=== PATIENT | female | born 1985 | race Caucasian/White ===

== ENCOUNTER 2020-06-17 04:07 | Emergency (ER) | payer SELFPAY ==
[2020-06-17] MEDS ORDERED: IBUPROFEN 800 MG (MOTRIN) TAB PO ONE ×2 (04:31→04:45)
[2020-06-17] MEDS ORDERED: IBUP-1780 PO (04:32)
--- NOTE | 2020-06-17 04:32 | ED Lower Extremity ---
General Chief Complaint: Lower Extremity Stated Complaint: RIGHT LARGE TOE INJURY Nursing Triage Note: Pt complaining of right big toe pain Nursing Sepsis Screen: No Definite Risk Source: patient Exam Limitations: no limitations History of Present Illness Date Seen by Provider: Jun 17, 2020 Time Seen by Provider: 04:20 Initial Comments 34 y/o female woke up to go to work this morning and when she tried to walk she had pain in her right great toe. Denies injury or previous occurrence of similar pain. No other joint pain. She called in to work as it was too painful to stand all day. Has taken nothing for pain. No pain at rest, only w standing or walking Allergies and Home Medications Allergies Coded Allergies: No Known Drug Allergies (Unverified , 06/17/20) Home Medications Ibuprofen 800 Mg Tablet, 800 MG PO Q8H PRN for PAIN Prescribed by: ISABEL MITCHELL on 06/17/20 0432 Patient Home Medication List Home Medication List Reviewed: Yes Review of Systems Constitutional: no symptoms reported; No chills, No fever, No malaise Respiratory: no symptoms reported Cardiovascular: no symptoms reported Gastrointestinal: no symptoms reported Musculoskeletal: see HPI; No back pain, No gout; joint pain (R great toe) Skin: change in color (redness); No lesions, No lumps, No rash Psychiatric/Neurological: Denies Numbness, Denies Paresthesia Past Fxlflpt-Fvxnzz-Fypadt Hx Past Med/Social Hx: Reviewed Nursing Past Med/Soc Hx Patient Social History Alcohol Use: Denies Use Type Used: Cigarettes 2nd Hand Smoke Exposure: No Recent Infectious Disease Expo: No Recent Hopitalizations: No Past Medical History Surgeries: No Respiratory: No Cardiac: No Neurological: No Genitourinary: No Gastrointestinal: No Musculoskeletal: No Endocrine: No HEENT: No Cancer: No Psychosocial: No Integumentary: No Physical Exam Vital Signs Vital Signs - First Documented 06/17/20 04:17 Temp 37.1 Pulse 63 Resp 18 B/P (MAP) 126/74 (91) Pulse Ox 96 O2 Delivery Room Air Capillary Refill : Less Than 3 Seconds Height, Weight, BMI Height: '" Weight: lbs. oz. kg; BMI Method: General Appearance: WD/WN, no apparent distress Legs: bilateral leg non-tender, bilateral leg normal inspection, bilateral leg normal range of motion, bilateral leg no evidence of injury Knees: bilateral knee non-tender, bilateral knee normal inspection, bilateral knee normal range of motion, bilateral knee no evidence of injury Ankles: bilateral ankle non-tender, bilateral ankle normal inspection, bilateral ankle normal range of motion, bilateral ankle no evidence of injury Feet: left foot non-tender, left foot normal inspection; bilateral foot normal range of motion, bilateral foot no evidence of injury; right foot bone tenderness (R MCP joint w minimal erythema and edema, but mod TTP), right foot pain, right foot soft tissue tenderness, right foot swelling Neurologic/Tendon: normal sensation, normal motor functions, normal tendon functions Neurologic/Psychiatric: alert, normal mood/affect Progress/Results/Core Measures Results/Orders My Orders Orders - ISABEL MITCHELL DO Ibuprofen Tablet (Motrin Tablet) (06/17/20 04:45) Vital Signs/I&O 06/17/20 04:17 Temp 37.1 Pulse 63 Resp 18 B/P (MAP) 126/74 (91) Pulse Ox 96 O2 Delivery Room Air Blood Pressure Mean: 91 Progress Progress Note : Progress Note doubtful that it is a gouty arthropathy as she has no pain at rest. More likely another type of random arthritic flare up. Treatment w NSAIDS and advised f/u at [facility] next week if not improving. Work excuse written for today only. Departure Impression Primary Impression: Monoarticular arthritis Disposition: 01 HOME, SELF-CARE Condition: Stable Departure-Patient Inst. Decision time for Depature: 04:31 Referrals: [facility],LOCAL PHYSICIAN (PCP) Primary Care Physician Patient Instructions: Gout (DC) Scripts Ibuprofen (Ibuprofen) 800 Mg Tablet 800 MG PO Q8H PRN for PAIN, #30 TAB 0 Refills Prov: ISABEL MITCHELL DO 06/17/20 Work/School Note: Work Release Form Date Seen in the Emergency Department: Jun 17, 2020 Return to Work: Jun 18, 2020 Restrictions: No Restrictions ISABEL MITCHELL DO Jun 17, 2020 04:32
[2020-06-17 04:40] VITALS: BP 126/74
== END 2020-06-17 04:40 | disposition home or self-care (01) ==
LOC: ER FS 04:12
DX: M13.871 Other specified arthritis, right ankle and foot (principal)
CPT/HCPCS: 99283

== ENCOUNTER 2020-06-24 21:12 | Emergency (ER) | payer SELFPAY ==
[~2020-06-24] VITALS: Ht 170.2 cm; Wt 87.8 kg
[~2020-06-24 21:12] MED LIST: IBUP-1780 PO
[2020-06-24 21:22] VITALS: BP_SYST 86
--- NOTE | 2020-06-24 21:45 | ED General ---
General Chief Complaint: Skin/Wound Problems Stated Complaint: RIGHT LEG ITCHING Nursing Triage Note: pt states right lower leg rash x 1 month, thinks it may be psoriasis because her sister has it Nursing Sepsis Screen: No Definite Risk Exam Limitations: No Limitations History of Present Illness Date Seen by Provider: Jun 24, 2020 Time Seen by Provider: 21:20 Initial Comments Patient with sporadic erythematous, pruritic, annular rash to lower extremities x1 MONTH. Patient has not been evaluated for this condition prior to ED arrival. No recent medications drugs, fever chills nausea vomiting or sweats. No other symptoms or complaints. Timing/Duration: Other Severity: Mild Associated Systoms: Rash Allergies and Home Medications Allergies Coded Allergies: No Known Drug Allergies (Unverified , 06/17/20) Home Medications Ibuprofen 800 Mg Tablet, 800 MG PO Q8H PRN for PAIN Prescribed by: ISABEL MITCHELL on 06/17/20 0432 Patient Home Medication List Home Medication List Reviewed: Yes Review of Systems Review of Systems Constitutional: see HPI EENTM: see HPI Respiratory: see HPI Cardiovascular: see HPI Gastrointestinal: see HPI Genitourinary: see HPI Musculoskeletal: see HPI Skin: see HPI Psychiatric/Neurological: See HPI Hematologic/Lymphatic: See HPI Immunological/Allergic: see HPI All Other Systems Reviewed Negative Unless Noted: Yes Past Lrkffer-Pviwea-Orbjqi Hx Past Med/Social Hx: Reviewed Nursing Past Med/Soc Hx Patient Social History Alcohol Use: Denies Use Smoking Status: Current Everyday Smoker Type Used: Cigarettes 2nd Hand Smoke Exposure: No Recent Infectious Disease Expo: No Recent Hopitalizations: No Past Medical History Surgeries: No Respiratory: No Cardiac: No Neurological: No Genitourinary: No Gastrointestinal: No Musculoskeletal: No Endocrine: No HEENT: No Cancer: No Psychosocial: No Integumentary: No Physical Exam Vital Signs Vital Signs - First Documented 06/24/20 21:22 Temp 37.1 Pulse 82 Resp 16 B/P (MAP) 86/ Pulse Ox 98 O2 Delivery Room Air Capillary Refill : Less Than 3 Seconds Height, Weight, BMI Height: '" Weight: lbs. oz. kg; 30.00 BMI Method: General Appearance: Other Eyes: Bilateral Eye Normal Inspection, Bilateral Eye PERRL, Bilateral Eye EOMI HEENT: PERRL/EOMI, Normal ENT Inspection Extremity: Other (Sporadic erythematous, annular rash to right leg with minimal scaling. No cellulitis induration weepING.) Focused Exam Sepsis Stage: Ruled Out Progress/Results/Core Measures Suspected Sepsis Recent Fever Within 48 Hours: No Infection Criteria Present: None New/Unexplained Altered Menta: No Sepsis Screen: No Definite Risk SIRS Temperature: Pulse: 82 Respiratory Rate: 16 Blood Pressure 86 / Mean: Results/Orders Vital Signs/I&O 06/24/20 21:22 Temp 37.1 Pulse 82 Resp 16 B/P (MAP) 86/ Pulse Ox 98 O2 Delivery Room Air Capillary Refill : Less Than 3 Seconds Departure Communication (Admissions) Rash consistent with ringworm. Recommend ehvj-srm-onpidgm antifungal cream. Impression Primary Impression: Ringworm Disposition: HOME, SELF-CARE Condition: Stable Departure-Patient Inst. Referrals: NO,LOCAL PHYSICIAN (PCP/Family) Primary Care Physician Patient Instructions: Ringworm Add. Discharge Instructions: Use Lotrimin antifungal bcas-qks-jvzixrz cream as directed and treat for the next 15 days. Follow-up with PCP as needed. All discharge instructions reviewed with patient and/or family. Voiced understanding. YOMAIRA GUTIERREZ DO Jun 24, 2020 21:45
== END 2020-06-24 21:47 | disposition home or self-care (01) ==
LOC: EDUNIT# 21:12 → ER FS 21:16
DX: B35.3 Tinea pedis (principal); F17.210 Nicotine dependence, cigarettes, uncomplicated
CPT/HCPCS: 99282

== ENCOUNTER 2020-07-22 17:56 | Emergency (ER) | payer SELFPAY ==
[~2020-07-22] VITALS: Ht 170 cm; Wt 89.3 kg
--- NOTE | 2020-07-22 19:03 | ED General ---
General Chief Complaint: Skin/Wound Problems Stated Complaint: SKIN INFECTION Nursing Triage Note: multiple round red areas on right lower leg. Was diagnosed with ring worm 3 weeks ago. Has been treating with lotrimen but has gotten worse. Nursing Sepsis Screen: No Definite Risk Source of Information: Patient History of Present Illness Date Seen by Provider: Jul 22, 2020 Time Seen by Provider: 18:20 Initial Comments Patient is a 34-year-old female evaluated in this emergency department approximately 3 weeks ago and treated for ringworm involving her right lower extremity. Patient had rash for several weeks prior to being evaluated. She initially completed zltv-vsn-wetjzmq ringworm treatment which she stated initially cleared but then returned. Patient now has contiguous spread throughout her right lower leg. No other symptoms or treatments. Patient does not currently have a PCP provider and was not seen in the clinic in follow-up Timing/Duration: 1/2 Hour, Changing Over Time Severity: Mild, Moderate Modifying Factors: improves with Other Associated Systoms: Other Allergies and Home Medications Allergies Coded Allergies: No Known Drug Allergies (Unverified , 06/17/20) Home Medications Ibuprofen 800 Mg Tablet, 800 MG PO Q8H PRN for PAIN Prescribed by: ISABEL MITCHELL on 06/17/20 0432 Patient Home Medication List Home Medication List Reviewed: Yes Review of Systems Review of Systems Constitutional: see HPI Respiratory: see HPI Cardiovascular: see HPI Gastrointestinal: see HPI Musculoskeletal: see HPI Skin: see HPI Psychiatric/Neurological: See HPI Hematologic/Lymphatic: See HPI Immunological/Allergic: see HPI All Other Systems Reviewed Negative Unless Noted: Yes Past Ruhevgu-Ejuyfk-Halfry Hx Past Med/Social Hx: Reviewed and Corrections made Patient Social History Alcohol Use: Denies Use Smoking Status: Current Everyday Smoker Type Used: Cigarettes 2nd Hand Smoke Exposure: No Recent Infectious Disease Expo: No Recent Hopitalizations: No Past Medical History Surgeries: No Respiratory: No Cardiac: No Neurological: No Genitourinary: No Gastrointestinal: No Musculoskeletal: No Endocrine: No HEENT: No Cancer: No Psychosocial: No Integumentary: No Physical Exam Vital Signs Vital Signs - First Documented 07/22/20 18:06 Temp 35.9 Pulse 71 Resp 16 B/P (MAP) 127/72 (90) Pulse Ox 98 Capillary Refill : Less Than 3 Seconds Height, Weight, BMI Height: '" Weight: lbs. oz. kg; 30.00 BMI Method: General Appearance: No Apparent Distress, WD/WN Eyes: Bilateral Eye Normal Inspection, Bilateral Eye PERRL, Bilateral Eye Abnormal EOM HEENT: PERRL/EOMI, Normal ENT Inspection, Other Neck: Supple, Other Respiratory: Lungs Clear, Other Cardiovascular: Regular Rate, Rhythm, Other Skin: Rash (Scattered annular rash over lower extremity.) Focused Exam Sepsis Stage: Ruled Out Skin: other Progress/Results/Core Measures Suspected Sepsis Recent Fever Within 48 Hours: No Infection Criteria Present: None New/Unexplained Altered Menta: No Sepsis Screen: No Definite Risk SIRS Temperature: Pulse: 71 Respiratory Rate: 16 Blood Pressure 127 /72 Mean: 90 Results/Orders My Orders Orders - YOMAIRA GUTIERREZ DO Urine Bedside (07/22/20 18:36) Vital Signs/I&O 07/22/20 18:06 Temp 35.9 Pulse 71 Resp 16 B/P (MAP) 127/72 (90) Pulse Ox 98 Capillary Refill : Less Than 3 Seconds Blood Pressure Mean: 90 Departure Communication (Admissions) Patient with ringworm involving right lower extremity. Will place on Lamisil and Keflex with PCP follow-up recommended Impression Primary Impression: Ringworm Disposition: HOME, SELF-CARE Condition: Stable Admissions Time/Decision to Admit Time: 19:04 Departure-Patient Inst. Decision time for Depature: 19:04 Referrals: NO,LOCAL PHYSICIAN (PCP/Family) Primary Care Physician Patient Instructions: Cellulitis (Skin Infection), Child (DC) Add. Discharge Instructions: Please take newly prescribed medications as directed and establish with a local primary care provider. All discharge instructions reviewed with patient and/or family. Voiced understanding. Scripts Cephalexin (Cephalexin) 500 Mg Tablet 500 MG PO BID, #20 TAB 0 Refills Prov: YOMAIRA GUTIERREZ DO 07/22/20 Terbutaline Sulfate (Terbutaline Sulfate) 5 Mg Tab 5 MG PO DAILY PRN, #10 TAB Prov: YOMAIRA GUTIERREZ DO 07/22/20 YOMAIRA GUTIERREZ DO Jul 22, 2020 19:02
[2020-07-22] MEDS ORDERED: [UNRECOGNIZED DRUG - CODE] PO (19:08)
[2020-07-22] MEDS ORDERED: CEPH500T PO (19:08)
[2020-07-22 19:14] VITALS: BP 127/72
== END 2020-07-22 19:14 | disposition home or self-care (01) ==
LOC: EDUNIT# 17:56 → ER FS 17:57
DX: B35.3 Tinea pedis (principal); F17.210 Nicotine dependence, cigarettes, uncomplicated; Z88.6 Allergy status to analgesic agent
CPT/HCPCS: 84703; 99282

== ENCOUNTER 2020-09-17 17:33 | Emergency (ER) | payer SELFPAY ==
[~2020-09-17] VITALS: Ht 160 cm; Wt 90.0 kg
[~2020-09-17 17:33] MED LIST changes: +CEPH500T PO; +[UNRECOGNIZED DRUG - CODE] PO
[2020-09-17 17:36] VITALS: BP 143/97
--- NOTE | 2020-09-17 17:49 | ED EENT ---
History of Present Illness General Chief Complaint: Nasal Problems Stated Complaint: CONGESTION,COLD CHILLS Source: patient Exam Limitations: no limitations History of Present Illness Date Seen by Provider: Sep 17, 2020 Time Seen by Provider: 17:37 Initial Comments Here with report of 24 hours of sinus congestion and smelling a different smell. She states this usually happens when she gets sinus problems and is not uncommon for her. Also concerned because she just recently started thyroid medicine last week for low thyroid. No current fevers. Denies cough, sore throat or breathing problems. Mostly sinus congestion is her problem. Absolutely denies any contact with [facility] and states that she is staying at home and is not even going to the store except for curbside pickup. Timing/Duration: gradual, yesterday Severity: mild Location: nose, other (Right sinus) Prearrival Treatment: no prearrival treatment Associated Symptoms: No cough, No ear drainage, No fever; nasal congestion/drainage; No sore throat, No voice change Allergies and Home Medications Allergies Coded Allergies: No Known Drug Allergies (Unverified , 06/17/20) Home Medications Cephalexin 500 Mg Tablet, 500 MG PO BID Prescribed by: YOMAIRA GUTIERREZ on 07/22/201907 Ibuprofen 800 Mg Tablet, 800 MG PO Q8H PRN for PAIN Prescribed by: ISABEL MITCHELL on 06/17/20 0432 Terbutaline Sulfate 5 Mg Tab, 5 MG PO DAILY PRN Prescribed by: YOMAIRA GUTIERREZ on 07/22/20 1908 Patient Home Medication List Home Medication List Reviewed: Yes Review of Systems Review of Systems Constitutional: see HPI Eyes: No Symptoms Reported Ears: No Symptoms Reported Nose: see HPI Mouth: no symptoms reported Throat: see HPI Respiratory: see HPI Cardiovascular: no symptoms reported Gastrointestinal: no symptoms reported Past Evbmbct-Nbohbx-Exnzys Hx Past Med/Social Hx: Reviewed Nursing Past Med/Soc Hx Patient Social History Alcohol Use: Denies Use Smoking Status: Current Everyday Smoker Type Used: Electronic/Vapor 2nd Hand Smoke Exposure: No Recent Hopitalizations: No Past Medical History Surgeries: No Respiratory: No Cardiac: No Neurological: No Genitourinary: No Gastrointestinal: No Musculoskeletal: No Endocrine: Yes Hypothyroidsim HEENT: No Cancer: No Psychosocial: No Integumentary: No Family Medical History Reviewed Nursing Family Hx Physical Exam Height, Weight, BMI Height: '" Weight: lbs. oz. kg; 30.00 BMI Method: General Appearance: WD/WN, no apparent distress Eyes: bilateral eye normal inspection, bilateral eye PERRL, bilateral eye EOMI Ears: bilateral ear auricle normal, bilateral ear canal normal, bilateral ear TM normal Nose: other (Mild bilateral nasal congestion with erythema and clear rhin orrhea. No purulence. No significant sinus tenderness. ) Mouth/Throat: pharynx normal Neck: full range of motion, supple; No lymphadenopathy (R), No lymphadenopathy (L) Cardiovascular: regular rate, rhythm, no murmur Respiratory: lungs clear, normal breath sounds Neurologic/Psychiatric: alert, oriented x 3 Skin: normal color, warm/dry Progress/Results/Core Measures Progress Progress Note : Progress Note Seen and evaluated. Nonconcerning exam. Vital signs normal. I did discuss supportive therapy and outpatient care. Discharged home with return precautions. Patient verbalized understanding of instructions and agreement with plan. She reports that she will have follow-up with her doctor this week. Departure Impression Primary Impression: Nasal congestion Disposition: HOME, SELF-CARE Condition: Stable Departure-Patient Inst. Decision time for Depature: 17:48 Referrals: [facility] OCASIO APRN (PCP/Family) Primary Care Physician Patient Instructions: Seasonal Allergies (DC), Sinusitis, Adult (DC) Add. Discharge Instructions: All discharge instructions reviewed with patient and/or family. Voiced understanding. Your symptoms may be related to allergies. You may initiate ibhz-jwq-hkxmzxe allergy medicine such as Claritin or loratadine. You may use Afrin nasal spray or the generic, 12-hour relief, 2 sprays to each nostril twice daily for 3 days only and then stop. Do not use more than 3 days. Use the Afrin nasal spray for the sinus congestion. You may take Tylenol/acetaminophen and/or ibuprofen as needed per package directions for sinus discomfort. Drink plenty of fluids. Follow-up with your doctor later this week for recheck and further evaluation as needed. ASHWINI AGUILERA MD Sep 17, 2020 17:49
== END 2020-09-17 17:50 | disposition home or self-care (01) ==
LOC: EDUNIT# 17:33 → ER FS 17:34
DX: R09.81 Nasal congestion (principal); E03.9 Hypothyroidism, unspecified; F17.290 Nicotine dependence, other tobacco product, uncomplicated; Z79.890 Hormone replacement therapy
CPT/HCPCS: 99282

== ENCOUNTER 2021-12-06 14:22 | Emergency (ER) | payer SELFPAY ==
[~2021-12-06] VITALS: Ht 170.1 cm; Wt 90.0 kg
[2021-12-06] MEDS ORDERED: IBUPROFEN 800 MG (MOTRIN) TAB PO ONE (14:45)
--- NOTE | 2021-12-06 15:08 | ED EENT ---
History of Present Illness General Chief Complaint: Dental Problems/Pain Stated Complaint: DENTAL PAIN Nursing Triage Note: Patient presents to the ED with c/o dental pain to on left upper tooth. Reports cavity to that tooth and states it has been hurting for 2 months. Taking Ibuprofen for pain. States its not helping today. Source: patient Exam Limitations: no limitations History of Present Illness Date Seen by Provider: Dec 06, 2021 Time Seen by Provider: 14:50 Initial Comments Patient is a 36-year-old female who presents with right upper bicuspid dental decay and pain. Patient states she cracked her tooth 2 months ago but has been unable to receive dental care as she was traveling for work. Pain is sharp moderate to severe and radiating. Facial redness swelling dysphonia dysphagia. No other symptoms or complaints. No medications or therapies taken prior to ED arrival Timing/Duration: gradual Severity: moderate Location: other Prearrival Treatment: other Modifying Factors: Improves With Other Associated Symptoms: other Allergies and Home Medications Allergies Coded Allergies: No Known Drug Allergies (Unverified , 06/17/20) Patient Home Medication List Home Medication List Reviewed: Yes Cephalexin (Cephalexin) 500 Mg Tablet, 500 MG PO BID Prescribed by: YOMAIRA GUTIERREZ on 07/22/201907 Ibuprofen (Ibuprofen) 800 Mg Tablet, 800 MG PO Q8H PRN for PAIN Prescribed by: ISABEL MITCHELL on 06/17/20 0432 Terbutaline Sulfate (Terbutaline Sulfate) 5 Mg Tab, 5 MG PO DAILY PRN Prescribed by: YOMAIRA GUTIERREZ on 07/22/20 190 Review of Systems Review of Systems Constitutional: see HPI (Moderate pain ) Mouth: see HPI Past Fkixjen-Rlqlan-Mlaglz Hx Patient Social History Tobacco Use?: Yes Tobacco type used: Cigarettes Substance use?: No Alcohol Use?: No Pt feels they are or have been: No Immunizations Up To Date First/Initial COVID19 Vaccinat: Not currently vaccinated Seasonal Allergies Seasonal Allergies: No Past Medical History Surgery/Hospitalization HX: Tubal; cholecysectomy; hernia Surgeries: No Respiratory: No Cardiac: No Neurological: No Genitourinary: No Gastrointestinal: No Musculoskeletal: No Endocrine: Yes Hypothyroidsim HEENT: No Cancer: No Psychosocial: No Integumentary: No Blood Disorders: No Physical Exam Vital Signs Vital Signs - First Documented 12/06/21 14:30 Temp 35.8 Pulse 66 Resp 16 B/P (MAP) 149/95 (113) O2 Delivery Room Air Height, Weight, BMI Height: '" Weight: lbs. oz. kg; 31.00 BMI Method: General Appearance: no apparent distress Mouth/Throat: other (right upper bicuspid fracture with dental tenderness. No gingival swelling or soft tissue swelling.) Progress/Results/Core Measures Results/Orders My Orders Orders - YOMAIRA GUTIERREZ DO Ibuprofen Tablet (Motrin Tablet) (12/06/21 14:45) Medications Given in ED Current Medications Medications Dose Ordered Sig/Elke Route Start Time Stop Time Status Last Admin Dose Admin Ibuprofen 800 mg ONCE ONCE PO 12/06/21 14:45 12/06/21 14:46 DC 12/06/21 14:51 800 MG Vital Signs/I&O 12/06/21 14:30 Temp 35.8 Pulse 66 Resp 16 B/P (MAP) 149/95 (113) O2 Delivery Room Air Blood Pressure Mean: 113 Departure Communication (Admissions) Family Conversation Dental pain secondary to dental caries. Pain addressed. Patient has follow-up appointment with a local dentist. Impression Primary Impression: Pain due to dental caries Disposition: HOME, SELF-CARE Condition: Stable Departure-Patient Inst. Decision time for Depature: 15:13 Referrals: [facility] OCASIO APRN (PCP/Family) Primary Care Physician Patient Instructions: Dental Pain ED, Tooth Decay ED Add. Discharge Instructions: Please take newly prescribed antibiotics as directed and follow-up with your local dentist. All discharge instructions reviewed with patient and/or family. Voiced understanding. Scripts Penicillin V Potassium (Penicillin V Potassium) 500 Mg Tablet 500 MG PO QID, #40 TAB Prov: YOMAIRA GUTIERREZ DO 12/06/21 Ibuprofen (Ibuprofen) 800 Mg Tablet 800 MG PO Q8H PRN for PAIN, #30 TAB 0 Refills Prov: YOMAIRA GUTIERREZ DO 12/06/21 YOMAIRA GUTIERREZ DO Dec 06, 2021 15:08
[2021-12-06] MEDS ORDERED: IBUP-1780 PO (15:14)
[2021-12-06] MEDS ORDERED: PENI500T PO (15:14)
[2021-12-06 15:27] VITALS: BP 149/95
== END 2021-12-06 15:27 | disposition home or self-care (01) ==
LOC: EDUNIT# 14:22 → ER FS 14:25
DX: K02.9 Dental caries, unspecified (principal); F17.210 Nicotine dependence, cigarettes, uncomplicated; Z28.310 Unvaccinated for COVID-19
CPT/HCPCS: 99283

== ENCOUNTER 2021-12-10 23:20 | Emergency (ER) | payer SELFPAY ==
[~2021-12-10] VITALS: Ht 173 cm; Wt 92.0 kg
[~2021-12-10 23:20] MED LIST changes: +PENI500T PO
--- NOTE | 2021-12-10 23:37 | ED EENT ---
History of Present Illness General Chief Complaint: Dental Problems/Pain Stated Complaint: DENTAL PAIN Source: patient Exam Limitations: no limitations History of Present Illness Date Seen by Provider: Dec 10, 2021 Time Seen by Provider: 11:20 Initial Comments Patient is a 36-year-old female evaluated in this emergency department 3 days ago by this provider for dental pain who presents with persistent right upper posterior premolar dental pain. Pain radiates to her right ear. Pain is described as sharp rated moderate to severe and is sensitive to cold feet. Patient was prescribed antibiotics and pain medication 3 days ago but did not fill due to lack of finances. She has not contacted a dentist. Patient is a current smoker. No other symptoms or complaints Timing/Duration: gradual Severity: moderate Location: ear (R), facial, dental Modifying Factors: Improves With Other Associated Symptoms: other Allergies and Home Medications Allergies Coded Allergies: No Known Drug Allergies (Unverified , 06/17/20) Patient Home Medication List Home Medication List Reviewed: Yes Cephalexin (Cephalexin) 500 Mg Tablet, 500 MG PO BID Prescribed by: YOMAIRA GUTIERREZ on 07/22/20 190 Ibuprofen (Ibuprofen) 800 Mg Tablet, 800 MG PO Q8H PRN for PAIN Prescribed by: ISABEL MITCHELL on 06/17/20 0432 Ibuprofen (Ibuprofen) 800 Mg Tablet, 800 MG PO Q8H PRN for PAIN Prescribed by: YOMAIRA GUTIERREZ on 12/06/21 1514 Penicillin V Potassium (Penicillin V Potassium) 500 Mg Tablet, 500 MG PO QID Prescribed by: YOMAIRA GUTIERREZ on 12/06/21 1514 Terbutaline Sulfate (Terbutaline Sulfate) 5 Mg Tab, 5 MG PO DAILY PRN Prescribed by: YOMAIRA GUTIERREZ on 07/22/20 190 Review of Systems Review of Systems Constitutional: see HPI Eyes: No Symptoms Reported Mouth: see HPI Respiratory: see HPI Past Pqkdddd-Wqcoff-Kbgtmj Hx Immunizations Up To Date First/Initial COVID19 Vaccinat: Not currently vaccinated Seasonal Allergies Seasonal Allergies: No Past Medical History Surgery/Hospitalization HX: Tubal; cholecysectomy; hernia Surgeries: No Respiratory: No Cardiac: No Neurological: No Genitourinary: No Gastrointestinal: No Musculoskeletal: No Endocrine: Yes Hypothyroidsim HEENT: No Cancer: No Psychosocial: No Integumentary: No Blood Disorders: No Physical Exam Height, Weight, BMI Height: '" Weight: lbs. oz. kg; 30.00 BMI Method: General Appearance: no apparent distress Nose: normal inspection, discharge Mouth/Throat: other (Right upper premolar pain/tenderness) Respiratory: lungs clear ( dental caries) Progress/Results/Core Measures Results/Orders My Orders Orders - YOMAIRA GUTIERREZ DO Ibuprofen Tablet (Motrin Tablet) (12/10/21 23:45) Departure Communication (Admissions) Pain addressed. She is instructed to fill antibiotics prescribed to her in a.m. and follow-up with dentist ADAN. Impression Primary Impression: Pain due to dental caries Disposition: HOME, SELF-CARE Condition: Stable Departure-Patient Inst. Decision time for Depature: 23:36 Referrals: NO,LOCAL PHYSICIAN (PCP/Family) Primary Care Physician Patient Instructions: Tooth Decay, Adult (DC) Add. Discharge Instructions: Please fill antibiotics and pain medication first thing in the morning and take as directed. May apply Orajel to affected area and take Tylenol as needed for additional relief. Follow-up with dentist of choice [facility]. All discharge instructions reviewed with patient and/or family. Voiced understanding. YOMAIRA GUTIERREZ DO Dec 10, 2021 23:37
[2021-12-10 23:41] VITALS: BP 155/97
[2021-12-10] MEDS ORDERED: IBUPROFEN 800 MG (MOTRIN) TAB PO ONE (23:45)
== END 2021-12-10 23:41 | disposition home or self-care (01) ==
LOC: EDUNIT# 23:20 → ER FS 23:22
DX: K02.9 Dental caries, unspecified (principal); Z28.310 Unvaccinated for COVID-19
CPT/HCPCS: 99283

== ENCOUNTER 2022-02-03 02:28 | Emergency (ER) | payer SELFPAY ==
[~2022-02-03] VITALS: Ht 173 cm; Wt 87.9 kg
[2022-02-03] MEDS ORDERED: CEPH500T PO (02:44)
[2022-02-03] MEDS ORDERED: TRM50T PO (02:44)
--- NOTE | 2022-02-03 02:44 | ED General ---
General Stated Complaint: DENTAL PAIN Source of Information: Patient Exam Limitations: No Limitations History of Present Illness Date Seen by Provider: Feb 03, 2022 Time Seen by Provider: 02:15 Initial Comments Patient is a 36-year-old female presents with left upper premolar pain. Patient states she cracked a tooth approximately 2 months ago and has not yet followed up with a dentist. Pain started to occur just prior to ED arrival. No dysphonia drooling or trismus. No other acute symptoms or complaints. Timing/Duration: 1-3 Hours Severity: Moderate Modifying Factors: improves with Other Allergies and Home Medications Allergies Coded Allergies: No Known Drug Allergies (Unverified , 06/17/20) Patient Home Medication List Home Medication List Reviewed: Yes Cephalexin (Cephalexin) 500 Mg Tablet, 500 MG PO BID Prescribed by: YOMAIRA GUTIERREZ on 07/22/201907 Ibuprofen (Ibuprofen) 800 Mg Tablet, 800 MG PO Q8H PRN for PAIN Prescribed by: ISABEL MITCHELL on 06/17/20 0432 Ibuprofen (Ibuprofen) 800 Mg Tablet, 800 MG PO Q8H PRN for PAIN Prescribed by: YOMAIRA GUTIERREZ on 12/06/21 151 Penicillin V Potassium (Penicillin V Potassium) 500 Mg Tablet, 500 MG PO QID Prescribed by: YOMAIRA GUTIERREZ on 12/06/21 151 Terbutaline Sulfate (Terbutaline Sulfate) 5 Mg Tab, 5 MG PO DAILY PRN Prescribed by: YOMAIRA GUTIERREZ on 07/22/201907 Review of Systems Review of Systems Constitutional: see HPI EENTM: see HPI Respiratory: see HPI Past Zjpfsgo-Sjhpqb-Jxrcvu Hx Patient Social History Tobacco Use?: No Immunizations Up To Date First/Initial COVID19 Vaccinat: Not currently vaccinated Seasonal Allergies Seasonal Allergies: No Past Medical History Surgery/Hospitalization HX: Tubal; cholecysectomy; hernia Surgeries: No Respiratory: No Cardiac: No Neurological: No Genitourinary: No Gastrointestinal: No Musculoskeletal: No Endocrine: Yes Hypothyroidsim HEENT: No Cancer: No Psychosocial: No Integumentary: No Blood Disorders: No Physical Exam Vital Signs Capillary Refill : Height, Weight, BMI Height: '" Weight: lbs. oz. kg; 30.00 BMI Method: General Appearance: No Apparent Distress, WD/WN Eyes: Bilateral Eye Normal Inspection, Bilateral Eye PERRL, Bilateral Eye EOMI HEENT: PERRL/EOMI, Moist Mucous Membranes, Other (Left upper molar pain/tenderness. No dysphonia drooling or trismus. No facial swelling or cellulitis) Respiratory: Lungs Clear Focused Exam Sepsis Stage: Ruled Out Progress/Results/Core Measures Suspected Sepsis SIRS Temperature: Pulse: Respiratory Rate: Blood Pressure / Mean: Results/Orders My Orders Orders - YOMAIRA GUTIERREZ DO Cephalexin Capsule (Keflex Capsule) (02/03/22 02:45) Acetaminophen Tablet (Tylenol Tablet) (02/03/22 02:45) Vital Signs/I&O Capillary Refill : Departure Communication (Admissions) Dental pain with dental caries fractured tooth. Antibiotics and pain medication given. We will continue therapeutic care with instructions to follow-up with de ntist of choice ADAN . Impression Primary Impression: Pain due to dental caries Disposition: HOME, SELF-CARE Condition: Stable Departure-Patient Inst. Decision time for Depature: 02:43 Referrals: NO,LOCAL PHYSICIAN (PCP/Family) Primary Care Physician Patient Instructions: Dental Pain ED Add. Discharge Instructions: ` You were evaluated in the emergency department for dental pain. Please fill antibiotics and take in the morning. Take ibuprofen 600 mg 3 times daily and tramadol as needed for additional relief. Follow-up with dentist of choice as soon as possible. Scripts Tramadol HCl (Tramadol HCl) 50 Mg Tablet 50 MG PO Q6H PRN for PAIN for 3 Days, #10 TAB 0 Refills Prov: YOMAIRA GUTIERREZ DO 02/03/22 Cephalexin (Cephalexin) 500 Mg Tablet 500 MG PO TID, #21 TAB Prov: YOMAIRA GUTIERREZ DO 02/03/22 YOAMIRA GUTIERREZ DO Feb 03, 2022 02:44
[2022-02-03] MEDS ORDERED: CEPHALEXIN 250 MG (KEFLEX) CAP PO ONE (02:45)
[2022-02-03] MEDS ORDERED: ACETAMINOPHEN 500 MG TAB (TYLENOL) PO ONE (02:45)
[2022-02-03 02:52] VITALS: BP 145/86
== END 2022-02-03 02:53 | disposition home or self-care (01) ==
LOC: EDUNIT# 02:28 → ER FS 02:31
DX: K02.9 Dental caries, unspecified (principal); K03.81 Cracked tooth; Z28.310 Unvaccinated for COVID-19
CPT/HCPCS: 99283

== ENCOUNTER 2022-02-04 21:56 | Emergency (ER) | payer SELFPAY ==
[~2022-02-04] VITALS: Ht 170 cm; Wt 87.6 kg
[~2022-02-04 21:56] MED LIST changes: +TRM50T PO
--- NOTE | 2022-02-04 22:04 | ED General ---
General Stated Complaint: TOOTH PAIN History of Present Illness Date Seen by Provider: Feb 04, 2022 Time Seen by Provider: 10:04 Initial Comments 36-year-old female is here with complaints of dental pain on her upper left pre- molar, patient was seen in the ER just yesterday and was given a prescription for tramadol and Keflex. Patient does fill the prescription and has started taking it but she is stating that the tramadol is not helping to completely take away the pain. Denies fever, facial swelling. Allergies and Home Medications Allergies Coded Allergies: No Known Drug Allergies (Unverified , 06/17/20) Patient Home Medication List Home Medication List Reviewed: Yes Cephalexin (Cephalexin) 500 Mg Tablet, 500 MG PO TID Prescribed by: YOMAIRA GUTIERREZ on 02/03/22243 Last Action: Reviewed Tramadol HCl (Tramadol HCl) 50 Mg Tablet, 50 MG PO Q6H PRN for PAIN Prescribed by: YOMAIRA GUTIERREZ on 02/03/22243 Last Action: Reviewed Discontinued Medications Cephalexin (Cephalexin) 500 Mg Tablet, 500 MG PO BID Discontinued Reason: Referral/FU Appt-Addtl Prescribed by: YOMAIRA GUTIERREZ on 07/22/201907 Last Action: Discontinued Ibuprofen (Ibuprofen) 800 Mg Tablet, 800 MG PO Q8H PRN for PAIN Discontinued Reason: Referral/FU Appt-Addtl Prescribed by: ISABEL MITCHELL on 06/17/20431 Last Action: Discontinued Ibuprofen (Ibuprofen) 800 Mg Tablet, 800 MG PO Q8H PRN for PAIN Discontinued Reason: Referral/FU Appt-Addtl Prescribed by: YOMAIRA GUTIERREZ on 12/06/211513 Last Action: Discontinued Penicillin V Potassium (Penicillin V Potassium) 500 Mg Tablet, 500 MG PO QID Discontinued Reason: Referral/FU Appt-Addtl Prescribed by: YOMAIRA GUTIERREZ on 12/06/211513 Last Action: Discontinued Terbutaline Sulfate (Terbutaline Sulfate) 5 Mg Tab, 5 MG PO DAILY PRN Discontinued Reason: Referral/FU Appt-Addtl Prescribed by: YOMAIRA GUTIERREZ on 07/22/201907 Last Action: Discontinued Review of Systems Review of Systems Constitutional: no symptoms reported EENTM: dental problems Respiratory: no symptoms reported Cardiovascular: no symptoms reported Gastrointestinal: no symptoms reported Genitourinary: no symptoms reported Musculoskeletal: no symptoms reported Skin: no symptoms reported Psychiatric/Neurological: No Symptoms Reported Hematologic/Lymphatic: No Symptoms Reported Immunological/Allergic: no symptoms reported Past Nnjtzrt-Gzepva-Jzqzmm Hx Immunizations Up To Date First/Initial COVID19 Vaccinat: Not currently vaccinated Second COVID19 Vaccination [facility]: Not currently vaccinated Third COVID19 Vaccination Date: Not currently vaccinated Seasonal Allergies Seasonal Allergies: No Past Medical History Surgery/Hospitalization HX: Tubal; cholecysectomy; hernia Surgeries: No Respiratory: No Cardiac: No Neurological: No Genitourinary: No Gastrointestinal: No Musculoskeletal: No Endocrine: Yes Hypothyroidsim HEENT: No Cancer: No Psychosocial: No Integumentary: No Blood Disorders: No Physical Exam Vital Signs Vital Signs - First Documented 02/04/22 22:00 Temp 36.1 Pulse 51 Resp 15 B/P (MAP) 172/94 (120) Pulse Ox 100 O2 Delivery Room Air Capillary Refill : Height, Weight, BMI Height: '" Weight: lbs. oz. kg; 29.00 BMI Method: General Appearance: No Apparent Distress, WD/WN HEENT: Other (right sided tooth fracture and left sided premolar cavity) Neck: Full Range of Motion, Normal Inspection, Non Tender, Supple Neurologic/Psychiatric: Alert, Oriented x3 Skin: Normal Color Progress/Results/Core Measures Suspected Sepsis SIRS Temperature: Pulse: Respiratory Rate: Blood Pressure / Mean: Results/Orders Vital Signs/I&O 02/04/22 22:00 Temp 36.1 Pulse 51 Resp 15 B/P (MAP) 172/94 (120) Pulse Ox 100 O2 Delivery Room Air Capillary Refill : Progress Note : Progress Note 1. LEFT PREMOLAR CAVITY: - Continue Keflex and Tramadol as prescribed -Stressed importance of seeing a dentist ADAN and not putting it off. Explained to patient that her pain will not be 100% relieved until the root problem is taking care of, and that can only be done by a dentist. -The patient was seen in the ED, and treated appropriately to presentation at a specific point in time. Patient is informed that there is a possibility that disease and illness can evolve and change in acuity rapidly or slowly after patient is discharged from the ER. Precautionary advice given to the patient for immediate return to ER if symptoms worsen or do not resolve, and to seek emergency care sooner rather than later. Pt also advised on the importance of PCP follow up and compliance with management and follow up plan with PCP and/or specialist, as this is part of the management plan. Pt verbally expressed understanding. Departure Impression Primary Impression: Dental caries Disposition: HOME, SELF-CARE Condition: Stable/Unchanged Departure-Patient Inst. Referrals: NO,LOCAL PHYSICIAN (PCP/Family) Primary Care Physician Patient Instructions: Dental Pain, Dental Pain ED Add. Discharge Instructions: - Continue Keflex and Tramadol as prescribed -Stressed importance of seeing a dentist ADAN. Explained to patient that her pain will not be 100% relieved until the root problem is taking care of, and that can only be done by a dentist. TEO LOVING MD Feb 04, 2022 22:04
[2022-02-04 22:45] VITALS: BP 172/94
== END 2022-02-04 22:45 | disposition home or self-care (01) ==
LOC: EDUNIT# 21:56 → ER FS 21:57
DX: K02.9 Dental caries, unspecified (principal); K03.81 Cracked tooth; Z28.310 Unvaccinated for COVID-19
CPT/HCPCS: 99282